=== PATIENT | female | born 1985 | race Caucasian/White ===

== ENCOUNTER 2017-01-30 16:54 | Emergency (ER) | payer SELFPAY ==
[2017-01-30] MEDS ORDERED: ORPHENADRINE CITRATE 30 MG/ML VIAL IM ONE (17:21)
[2017-01-30] MEDS ORDERED: KETOROLAC TROMETHAMINE 60 MG/2 ML VIAL IM ONE ×2 (17:21→17:25)
[2017-01-30] MEDS ORDERED: ORPHENADRINE CITRATE 30 MG/ML VIAL ONE (17:25)
[2017-01-30 17:30] VITALS: BP 110/68
--- NOTE | 2017-01-30 17:36 | ERNOTE ---
Upper Extremity HPI - Narrative Date of Service: 01/30/17 - General Extremities Pain Location: shoulder: right Time Seen by Provider: 01/30/17 17:02 Source: patient Exam Limitations: no limitations - Immun/Allergies/Home Medications Immunizations: IMMUNIZATION HX Immunizations Up to Date Yes History of Influenza Vaccine No Hx Pneumococcal Vaccination No Allergies/Adverse Reactions: Allergies Allergy/AdvReac Type Severity Reaction Status Date / Time No Known Allergies Allergy Verified 01/30/17 17:00 Home Medications: HOME MEDICATIONS Cyclobenzaprine HCl [Flexeril] 10 mg PO TID PRN #30 tab 01/30/17 [Last Taken Unknown] Naproxen [Naprosyn] 500 mg PO BID PRN #60 tab 01/30/17 [Last Taken Unknown] - History of Present Illness Narrative: Pt. comes in with shoulder pain that radiates across her collarbone and up to her neck in a triangular fashion. Pt. denies any SOB, CP, numbness, tingling, fever, recent illness or injury. Pt. states that she has intermittent pain in this shoulder for nine years without change in symptoms or location. Pt. states that she has had multiple xrays in the past without any diagnosis. Pt. denies any referral to ortho in the past. Pt. states that pain is exacerbated by working and denies alleviating despite using tylenol and Ibuprofen sporadically. Review of Systems - Review of Systems Constitutional: Present: no symptoms reported. Absent: recent illness, fever, chills, weakness, fatigue, malaise EYE: Present: no symptoms reported ENT: Present: no symptoms reported Respiratory: Present: no symptoms reported. Absent: shortness of breath, cough , wheezing Cardiology: Present: no symptoms reported. Absent: chest pain, palpitations, edema Gastrointestinal/Abdominal: Present: no symptoms reported. Absent: nausea, vomiting, diarrhea, abdominal pain Genitourinary: Present: no symptoms reported Musculoskeletal: Present: joint pain - R shoulder Skin: Present: no symptoms reported. Absent: rash, change in color Neurological: Present: no symptoms reported. Absent: headache, dizziness/light- headedness, numbness, tingling All Other Systems: All systems neg except as marked - Patient's Past Medical History Patient History - Medical: Seizures Patient History - Cardiac/Respiratory: No pertinent hx Patient History - Cancer: No Hx of Cancer Patient History - Surgical Procedures: Tubal Ligation, T & A Patient History - Other: None - Family History Mother Family History - Medical: No pertinent hx Father Family History - Medical: No pertinent hx - Social History Living Situations: home Abuse History: No History of abuse Psych History: Hx of Anxiety, Hx of Depression Does anyone smoke in the home?: Yes Alcohol Use: occasionally Drug Use: none - Immunizations Immunizations Up to Date: Yes Hx Pneumococcal Vaccination: No History of Influenza Vaccine: No Physical Exam - Physical Exam General Appearance: Present: wd/wn, alert, no apparent distress Head Exam: Present: normal inspection, no evidence of injury Eye Exam: Normal inspection: bilateral Ears, Nose, Throat: Present: normal ENT inspection, normal pharynx Neck: Present: tender lateral - lateral along R sternocleidomastoid Respiratory: Present: no respiratory distress, normal breath sounds, no accessory muscle use, chest nontender, lungs clear Cardiovascular/Chest: Present: regular rate, rhythm, no murmur, normal peripheral pulses Back Exam: Present: normal inspection, no vertebral tenderness Extremity Exam: Present: decreased range of motion - abduction and frontal lift with pain, other - pain lateral along R sternocleidomastoid. Absent: bony tenderness Neurological Exam: Present: alert, oriented, normal mood/affect, no motor/ sensory deficits Skin Exam: Present: normal color, warm/dry. Absent: pallor, skin rash ED Progress - Date and Time Seen: Date and Time: 01/30/17 17:29 As pt. has known chronic pain and no recent injury feel that xrays are not needed but pt. does need referral to ortho for chronic injury that has likely not healed properly. - Vital Signs Patient's Vital Signs:: I have reviewed the patient's vital signs. Vital Signs: Vital Signs 01/30/17 16:57 Temperature 36.5 C Pulse Rate 67 Respiratory 12 Rate Blood Pressure 108/65 O2 Sat by Pulse 100 Oximetry - Progress/Reassessment Chief Complaint: Shoulder Injury/Pain Departure Clinical Impression: Sternocleidomastoid muscle tenderness - Departure Disposition: Home self-care Condition: Good Instructions: Muscle Strain, [id number], Form - Excuse from Work, School, or Physical Activity Additional Instructions: Please follow up with orthopedics by calling office for appointment. Prescriptions: Cyclobenzaprine HCl [Flexeril] 10 mg PO TID PRN #30 tab PRN Reason: MUSCLE SPASMS Naproxen [Naprosyn] 500 mg PO BID PRN #60 tab PRN Reason: Pain
== END 2017-01-30 17:43 | disposition home or self-care (01) ==
LOC: ER 16:54
PROC: 2W38X1Z Immobilization of Right Upper Extremity using Splint (ICD-10-PCS; principal; 2017-01-30)
DX: M79.1 Myalgia (principal)

== ENCOUNTER 2017-03-14 04:09 | Emergency (ER) | payer SELFPAY ==
[2017-03-14] MEDS ORDERED: ONDANSETRON HCL/PF 2 MG/ML VIAL ONE ×2 (04:29→05:24)
--- NOTE | 2017-03-14 04:32 | ERNOTE ---
Abdominal HPI - General Chief Complaint: Constipation Time Seen by Provider: 03/14/17 04:20 Source: patient Exam Limitations: no limitations - Immun/Allergies/Home Medications Immunizatons: IMMUNIZATION HX Immunizations Up to Date Yes History of Influenza Vaccine No Hx Pneumococcal Vaccination No Allergies/Adverse Reactions: Allergies No Known Allergies Allergy (Verified 03/14/17 04:18) Home Medications: HOME MEDICATIONS NK [No Home Medication] 03/14/17 [Last Taken Unknown] - History of Present Illness Narrative: Pt has been constipated and was recommended by the pharmacist to do a fleets enema and drink a lot of water. She has tried both without any improvement Timing: getting worse Quality: moderate, burning, cramping Activities at Onset: none Modifying Factors - (Worsens): Present: movement Associated Symptoms: Present: vomiting Review of Systems - Review of Systems Constitutional: Absent: recent illness EYE: Present: no symptoms reported ENT: Present: no symptoms reported Respiratory: Present: shortness of breath Cardiology: Absent: chest pain Gastrointestinal/Abdominal: Present: See HPI, vomiting, constipation Genitourinary: Present: no symptoms reported Musculoskeletal: Absent: back pain Skin: Present: no symptoms reported Neurological: Present: no symptoms reported Endocrine: Present: no symptoms reported Hematologic/Lymphatic: Present: no symptoms reported Psych: Present: no symptoms reported - Patient's Past Medical History Patient History - Medical: Seizures Patient History - Cardiac/Respiratory: No pertinent hx Patient History - Cancer: No Hx of Cancer Patient History - Surgical Procedures: Tubal Ligation, T & A Patient History - Other: None - Family History Mother Family History - Medical: No pertinent hx Father Family History - Medical: No pertinent hx - Social History Living Situations: home Abuse History: No History of abuse Psych History: Hx of Anxiety, Hx of Depression Smoking Status: Current every day smoker Alcohol Use: occasionally Drug Use: none - Immunizations Immunizations Up to Date: Yes Hx Pneumococcal Vaccination: No History of Influenza Vaccine: No Physical Exam - Physical Exam General Appearance: Present: wd/wn, alert, mild distress Ears, Nose, Throat: Present: normal ENT inspection Neck: Present: normal inspection, nontender Respiratory: Present: no respiratory distress, normal breath sounds, no accessory muscle use Cardiovascular/Chest: Present: regular rate, rhythm, no murmur Gastrointestinal/Abdominal: Present: tenderness - b/l upper quads, abnormal bowel sounds - hypoactive with some high pitched sounds, rebound - questionable. Absent: distended, guarding Back Exam: Present: normal inspection, no CVA tenderness, no vertebral tenderness Extremity Exam: Present: normal inspection, normal range of motion, no edema Neurological Exam: Present: alert, oriented, no motor/sensory deficits Skin Exam: Present: normal color, warm/dry Lymphatic Exam: Present: no adenopathy ED Progress - Results and Orders Patient's Lab Results:: I have reviewed the patient's lab results. Results and Orders: Laboratory Tests 03/14/17 03/14/17 03/14/17 04:27 04:27 04:27 WBC 8.4 Hgb 14.2 Hct 40.6 Plt Count 222 Sodium 141 Potassium 4.0 Chloride 103 Carbon Dioxide 29.0 BUN 13 Creatinine 0.79 Calcium 8.8 Total Bilirubin 0.5 AST 30 ALT 61 Alkaline Phosphatase 44 L Total Protein 7.0 Albumin 3.6 Amylase 63 Lipase 174 Serum HCG, Qual Negative - Vital Signs Vital Signs: Vital Signs 03/14/17 04:13 Temperature 36.8 C Pulse Rate 69 Respiratory 18 Rate Blood Pressure 128/60 O2 Sat by Pulse 99 Oximetry - X-Ray X-Ray #1 X-Ray: abdomen Interpretation: Interp. by me X-ray Comments: moderate stool retention without a/f levels. No evidence of obstruction or mass - Progress/Reassessment Chief Complaint: Constipation Departure Clinical Impression: Constipation Qualifiers: Constipation type: slow transit constipation Qualified Code(s): K59.01 - Slow transit constipation - Departure Disposition: Home self-care Condition: Good Instructions: Constipation, Adult, [id number] Additional Instructions: take 1/2 of a bottle of magnesium citrate followed by 8-12 ounces of water. Repeat in 6 hours as needed.
[2017-03-14] MEDS: NORMAL SALINE 1,000 ML IV ONE (04:38)
[2017-03-14] MEDS: ONDANSETRON HCL/PF 2 MG/ML VIAL IV ONE ×2 (04:38→05:25)
[2017-03-14 04:39] LABS: Hematocrit 40.6 % (37.0-47.0); Hemoglobin 14.2 gm/dL (12.5-16.0); Mean Cell Volume 90.8 fl (78-100); Mean Corpuscular Hemoglobin 31.8 pg (27-31); Mean Platelet Volume 10.2 fl (6.0-9.5); Neutrophil # 5.8 K/mm3 (1.3-6.0); Neutrophil % 68.6 % (42-75.0); Platelet Count 222 K/mm3 (150-450); Red Blood Count 4.47 M/mm3 (4.2-5.4); Red Cell Distribution Width 11.9 % (11.5-14.0); White Blood Count 8.4 K/mm3 (4.0-10.5)
[2017-03-14] MEDS ORDERED: KETOROLAC TROMETHAMINE 30 MG/ML VIAL ONE (04:40)
[2017-03-14] MEDS: KETOROLAC TROMETHAMINE 30 MG/ML VIAL IV ONE (04:41)
[2017-03-14 04:53] LABS: Albumin * 3.6 gm/dl (3.4-5.0); BUN/Creatinine Ratio 16.5 (9.0-21.6); Bilirubin, Total 0.5 mg/dL (0.0-1.1); Ca. Corrected For Albumin 8.8 mg/dL (8.4-10.2); Calcium * 8.8 mg/dL (7.9-10.9)
[2017-03-14] MEDS: MAG HYDROX/ALUMINUM HYD/SIMETH 30 ML UDC PO ONE (05:21)
[2017-03-14] MEDS: SUCRALFATE 1 G/10 ML UDC PO ONE (05:21)
[2017-03-14] MEDS: LIDOCAINE HCL 20 ML UDC PO ONE (05:21)
[2017-03-14] MEDS ORDERED: MAGNESIUM CITRATE 300 ML BTL ONE (05:47)
[2017-03-14] MEDS: DICYCLOMINE HCL 10 MG/ML AMPUL IM ONE (05:48)
[2017-03-14] MEDS: MAGNESIUM CITRATE 300 ML BTL PO ONE (05:48)
[2017-03-14] MEDS ORDERED: DICYCLOMINE HCL 20 MG TABLET ONE (05:53)
[2017-03-14] MEDS: DICYCLOMINE HCL 10 MG CAPSULE PO ONE (05:55)
[2017-03-14 06:07] VITALS: BP 118/62
== END 2017-03-14 06:02 | disposition home or self-care (01) ==
LOC: ER 04:09
DX: K59.01 Slow transit constipation (principal); F17.200 Nicotine dependence, unspecified, uncomplicated